=== PATIENT | male | born 1940 | race Caucasian/White ===

== ENCOUNTER 2020-01-12 12:58 | Emergency (ER) | payer OTHER, SELFPAY ==
[2020-01-12] VITALS (7 sets, daily range): BP systolic 135–211; BP diastolic 66–84; PULSE 72–92; RESP 16–39; TEMP 36.9–38; O2SAT 88–96; BMI 39.7
--- NOTE | 2020-01-12 13:34 | EKG12_ITS ---
Test Reason : Blood Pressure : / mmHG Vent. Rate : 083 BPM Atrial Rate : 096 BPM P-R Int : 000 ms QRS Dur : 094 ms QT Int : 368 ms P-R-T Axes : 000 026 211 degrees QTc Int : [address] & T wave abnormality, consider inferior ischemia Abnormal ECG Confirmed by HAKEEM GUTIERREZ ([id number]), industrial editor BLAISE MELTON ([id number]) on 01/14/2020 9:35:29 AM Referred By: MIKE Confirmed By:HAKEEM GUTIERREZ
--- NOTE | 2020-01-12 13:35 | RAD_ITS ---
STUDY: X-RAY - PELVIS AND LEFT HIP REASON FOR EXAM: Male, 79 years old. HIP PAIN S/P FALL -- UNABLE TO KEEP LEGS STRAIGHT FOR AP TECHNIQUE: 3 views of the pelvis and hip. COMPARISON: None. FINDINGS: Large amount of fecal material is seen in the colon. Calcified vas deferens. There are atherosclerotic vascular calcifications. Normal bilateral iliac wings, sacroiliac joints and visualized sacrum. Normal bilateral superior and inferior pubic rami. There are degenerative changes of the pubic symphysis with articular narrowing and sclerosis. Normal bilateral ischial tuberosities. The patient is status post right total hip replacement. Marked degree of joint space narrowing and osteoarthritis of the left hip joint. RAD/HIP, UNI W/ Pelvis 2-3 Views IMPRESSION: Status post right hip replacement. 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 Electronically Signed: Willie Winston, at 14:34 EST , Service support ,
--- NOTE | 2020-01-12 13:35 | RAD_ITS ---
STUDY: X-RAY - LEFT KNEE REASON FOR EXAM: Male, 79 years old. KNEE PAIN S/P FALL TECHNIQUE: 4 view(s) of the knee. COMPARISON: None. FINDINGS: Normal visualized distal femur. Normal visualized proximal tibia and fibula. Normal proximal tibiofibular articulation. The patient is status post total knee replacement. There are atherosclerotic calcifications. Small joint effusion. RAD/Knee 4 or More Views IMPRESSION: Status post total knee replacement. There is good alignment. Joint effusion. Electronically Signed: Willie Winston, at 14:36 EST , Service support ,
--- NOTE | 2020-01-12 13:41 | ED.RN ---
pharmacy informaticist informed to help complete medication list
[2020-01-12] MEDS: Morphine 4 MG/ML Syringe IV (13:49)
[2020-01-12] MEDS: 0.9% Normal Saline 1,000 ML 1000 ML IV (13:49)
[2020-01-12 13:50] LABS: Absolute Lymphocyte Count 0.72 X10^3/uL (0.83-4.51); Absolute Neutrophil Count 7.1 X10^3/uL (2.0-7.7); Basophil# 0.01 X10^3/uL; Basophil% 0.1 % (0-1); Eosinophil# 0.02 X10^3/uL; Eosinophils% 0.2 % (0-5); Hematocrit 39.6 % (40-54); Hemoglobin 12.9 g/dL (13.0-16.5); Lymphocyte # 0.72 X10^3/ul (4.0); Lymphocyte % 8.5 % (19-41); Mean Corp Hgb Conc 32.6 g/dL (32-36); Mean Corpuscular Hgb 29.5 pg (27.0-32.0); Mean Corpuscular Volume 90.6 fL (80-94); Mean Platelet Vol. 9.6 fl (6.2-12.0); Monocyte# 0.69 X10^3/uL; Monocyte% 8.1 % (0-10); NRBC Flagged by Analyzer 0 % (0-5); Neutrophil # 7.05 X10^3/uL (2.7-7.7); Neutrophil % 82.7 % (47-70); Platelet Count 154 K/mm3 (150-450); RBC Distribution Width CV 14.2 % (11.6-14.6); RBC Distribution Width SD 47.3 fl (35.1-43.9); Red Blood Count 4.37 M/mm3 (4.6-6.2); White Blood Count 8.5 K/mm3 (4.4-11.0)
[2020-01-12 14:15] LABS: ALB/GLOB Ratio 0.9 RATIO (0.9-2.4); AST(SGOT) 22 U/L (15-37); Alanine Aminotransfer ALT/SGPT 18 U/L (16-61); Albumin, Serum 3.6 g/dL (3.2-5.0); Alkaline Phosphatase 124 U/L (45-117); Anion Gap 4 (5-15); BUN 21 mg/dL (7-18); BUN/Creat Ratio 16.5 RATIO (10-20); Calcium,Total 9.1 mg/dL (8.5-10.1); Chloride 103 mmol/L (98-107); Creatinine, Serum 1.27 mg/dL (0.70-1.30); EST Glomerular Filtration Rate 58 mL/min (>60); Est Glom Filt Rate - Afr Amer 71 mL/min (>60); Estimated Creatinine Clearance 51.06 ml/min; Globulin 3.8 g/dL (2.2-4.2); Glucose 92 mg/dL (74-106); Potassium 3.3 mmol/L (3.5-5.1); Protein, Total 7.4 g/dL (6.4-8.2); Sodium Level 140 mmol/L (136-145)
[2020-01-12 14:42] LABS: Mucous, Urine 0 SEEN /hpf (<or=2+); Squamous Epithelial Cells - UA 0 SEEN /hpf (0-5)
[2020-01-12 14:53] LABS: Color, Urine Yellow (Yellow); Glucose, Dipstick Normal (Normal); Ketone-Dipstick Negative (Negative); Leukocyte Esterase-Dipstick 100 /ul (Negative); Nitrite-Dipstick Positive (Negative); Occult Blood-Urine 250 /ul (Negative); Protein-Dipstick 15 mg/dl (Negative); Urine Bilirubin Dipstick Negative (Negative); Urine Clarity Cloudy (Clear); Urine Urobilinogen Normal (Normal); Urine pH 6.5 (5.0 - 8.0)
[2020-01-12 15:08] LABS: Bacteria 1+ /hpf (None Seen); Red Blood Cells-Urine 0-5 SEEN /hpf (0-5); White Blood Cells 25-50 SEEN /hpf (0-5)
--- NOTE | 2020-01-12 15:50 | RAD_ITS ---
STUDY: X-RAY - RIGHT SHOULDER REASON FOR EXAM: Male, 79 years old. FALL, PAIN TECHNIQUE: 2 view(s) of the shoulder. COMPARISON: None. FINDINGS: Normal glenohumeral articulation. Normal acromioclavicular joint. Normal acromion. Normal humeral head and visualized proximal humerus. The soft tissue structures are unremarkable. Normal visualized pulmonary apex. RAD/Shoulder min 2 Views IMPRESSION: Normal x-ray examination of the shoulder. Electronically Signed: Reinaldo June MD at 16:22 EST Tel , Service support ,
--- NOTE | 2020-01-12 16:00 | ED.DCSUM_ITS ---
- ER Visit Summary Date of Service: 01/12/20 Chief Complaint: Frequent falls History of Present Illness: The patient is a 79 M who presents after another fall today. Patient states his legs got weak and he fell again today. Patient states he fell a couple days ago. Patient states that with the first fall he injured his right shoulder. Patient states that today he injured his left knee and hip. Patient states he normally walks with a walker but today he was only able to take a couple steps with his walker before he had to go back to his bed and sit down. Patient states when he tried to sit down he fell off the side of the bed and his lower leg was hyperflexed under his thigh and buttock. Patient states he has been having difficulty ambulating since that time. Patient states his pain is aching and is worse with any movement. Patient denies any head injury or loss of consciousness. Patient denies any paresthesias. Physical Examination: Vital signs are stable. Patient is afebrile. Patient is in no acute distress. Oral mucosa is pink and dry. Neck is supple. Trachea is midline. There is no JVD. Heart was irregularly irregular. Lungs are clear and equal bilaterally. Abdomen is soft. Bowel sounds are normal. There is no tenderness. Cranial nerves II through XII are intact. There are no focal motor or sensory deficits noted. Extremities are intact. There is limited range of motion of the left knee, left hip, and right shoulder. There is no obvious deformity noted. Strength is 5/5 bilaterally in the lower extremities. There are no sensory deficits noted. Test Results: X-rays of the left hip and left knee were obtained. There is no acute fracture or dislocation. CBC shows a mild anemia with a hemoglobin of 12.9 and hematocrit 39.6. Comprehensive metabolic profile shows a slightly elevated BUN of 21 and a slightly elevated total bilirubin of 1.5. Urinalysis shows leukocyte esterase of 100 with positive nitrates. There were 25-50 white blood cells and 1+ bacteria. Emergency Department Course and Treatment: Patient was given IV fluids here. Patient was given a dose of Rocephin. Urine culture was obtained. Patient was advised that he would need to be admitted for dehydration and urinary tract infection and lower extremity weakness. Patient requested to be transferred to the [place]. patient was accepted at the [facility] in [facility]. Patient will be transferred to the service of Dr. Farmer. Disposition: Transfer to [facility] Impression: 1. Urinary tract infection 2. Lower extremity weakness 3. Dehydration This note was generated with [employer] dictation software. It may contain incorrect words, spelling, and punctuation that were not noted in review of the chart prior to signing ED Disposition - Plan for ED Patient: Disposition: [facility] Diagnosis: Urinary tract infection, Dehydration, Lower extremity weakness [facility] [[facility] Provider] -
--- NOTE | 2020-01-12 16:04 | NURSING ---
CALLED [facility] ABOUT TRANSFER. TALKED TO MARGI AT TRANSFER LINE. SHE TOOK INFO ON PATIENT AND SAID SOMEONE WOULD CALL US BACK.
[2020-01-12] MEDS: Ceftriaxone 1 GM/50 ML BAG IV (16:33)
--- NOTE | 2020-01-12 16:36 | NURSING ---
[id number] PRIYA MARTINEZ, TALKED TO ME. SAID PATIENT HAD MEDICARE A AND B. WAS NOT SERVICE RELATED.
--- NOTE | 2020-01-12 16:37 | NURSING ---
FAXED CHART TO PRIYA MARTINEZ [phone]
--- NOTE | 2020-01-12 16:44 | ED.RN ---
[facility] called [facility]. the pt is a spinal cord injury and has transportation available. Admission is on hold right now
--- NOTE | 2020-01-12 16:55 | ED.RN ---
DR. MCKEON INFORMED OF PT FEVER. ORDERS SEEN ON JAN. NO OTHER ORDERS AT THIS TIME.
[2020-01-12] MEDS: HYDROcodone Bitartrate/Apap 5/325 Tablet PO (17:00)
[2020-01-12] MEDS: Acetaminophen 325 MG Tablet PO (17:00)
--- NOTE | 2020-01-12 17:02 | ED.RN ---
MORIAH CONTRERAS, PT SON, PHONE NUMBER [phone]
--- NOTE | 2020-01-12 18:04 | ED.RN ---
PT SON TAMANNA INFORMED OF PT TRANSFER VIA PHONE CALL PER PT REQUEST. TAMANNA REPORTS HE WILL INFORM BROTHER MORIAH ALSO.
== END 2020-01-12 18:00 ==
PROVIDERS: Emergency Provider Emergency Medicine
DX: N39.0 Urinary tract infection, site not specified (principal); E86.0 Dehydration; R53.1 Weakness; M25.562 Pain in left knee; M25.552 Pain in left hip; Z96.641 Presence of right artificial hip joint
CPT/HCPCS: 73030; 73502; 73564; 80053; 81001; 84484; 85025; 87077; 87086; 87088; 87186; 93005; 96361; 96365; 96375; 99285; J7030; J7050; A4216